=== PATIENT | female | born 2000 | race Caucasian/White ===

== ENCOUNTER 2021-03-28 16:34 | Observation (INO) | payer OTHER ==
[~2021-03-28] VITALS: Ht 172.7 cm; Wt 59.1 kg
[2021-03-28 17:41] LABS: BASO # 0.1 K/mm3 (0.0-0.2); BASO % 0.8 % (0.0-2.0); EOS # 0.1 K/mm3 (0.0-0.7); EOS % 0.8 % (0-4.0); GRAN % 55.7 % (42.2-75.2); HEMOGLOBIN 12.1 g/dl (12.5-16.0); LYMPH # 3.9 K/mm3 (1.2-3.4); MEAN CELL VOLUME 91 fl (80.0-100.0); MEAN CORPUSCULAR HEMOGLOBIN 31 pg (27.0-31.0); MEAN CORPUSCULAR HGB CONC 34 g/dl (33.0-37.0); MEAN PLATELET VOLUME 9.9 fl (7.4-10.4); MONO # 0.7 K/mm3 (0.1-0.6); MONO % 6.3 % (1.7-9.3); PLATELET COUNT 284 K/mm3 (130-400); RED BLOOD COUNT 3.89 M/mm3 (4.10-5.30); REDCELL DISTRIBUTION WIDTH-CV 12.8 % (11.5-14.5)
[2021-03-28 17:44] LABS: HEMATOCRIT 35.4 % (37.0-47.0)
[2021-03-28 18:12] LABS: ALBUMIN 4.2 gm/dL (3.5-5.0); BILIRUBIN,TOTAL 0.9 mg/dL (0.2-1.2); CREATININE, serum 0.81 mg/dL (0.57-1.11); TOTAL PROTEIN 7.1 gm/dL (6.2-8.1)
[2021-03-28 18:29] LABS: C-REACTIVE PROTEIN 0.31 mg/dL (0.00-0.50)
[2021-03-28 18:39] LABS: TROPONIN-I < 0.010 ng/mL (0.00-0.033)
[2021-03-28] MEDS ORDERED: EFFEXOR 75M75 MG/TAB PO (20:13)
--- NOTE | 2021-03-28 21:40 | NUR ---
2139- REPORT RECEIVED FROM DEO ROCHA IN ED. 2149- PT ARRIVES TO ROOM 222 PER CART, ABLE TO TRANSFER TO BED WITHOUT ASSISTANCE. IV TO RIGHT HAND INFUSING NS AT 125ML. TELEMETRY ALREADY ON PT. PT ORIENTED TO ROOM AND CALL LIGHTS, PLAN OF CARE DISCUSSED AND QUESTIONS ANSWERED. ASSESSMENT CHARTED.
[2021-03-28 22:00] VITALS: BP 118/69; PULSE 69; TEMP 98.9
[2021-03-29 02:40] VITALS: BP 98/47; PULSE 73; TEMP 98.2
[2021-03-29 07:05] VITALS: BP 111/55; PULSE 66; TEMP 98.1
[2021-03-29 08:42] LABS: BASO % 0.7 % (0.0-2.0); EOS # 0.1 K/mm3 (0.0-0.7); EOS % 1.2 % (0-4.0); GRAN # 3.3 K/mm3 (1.4-6.5); GRAN % 55.8 % (42.2-75.2); HEMATOCRIT 34.7 % (37.0-47.0); HEMOGLOBIN 11.6 g/dl (12.5-16.0); LYMPH % 33.4 % (20.0-51.0); MEAN CELL VOLUME 93 fl (80.0-100.0); MEAN CORPUSCULAR HEMOGLOBIN 31 pg (27.0-31.0); MEAN CORPUSCULAR HGB CONC 33 g/dl (33.0-37.0); MEAN PLATELET VOLUME 9.9 fl (7.4-10.4); MONO # 0.5 K/mm3 (0.1-0.6); MONO % 8.7 % (1.7-9.3); PLATELET COUNT 218 K/mm3 (130-400); RED BLOOD COUNT 3.74 M/mm3 (4.10-5.30); REDCELL DISTRIBUTION WIDTH-CV 12.9 % (11.5-14.5)
[2021-03-29 08:58] LABS: CALCIUM 9.2 mg/dL (8.4-10.2); CREATININE, serum 0.7 mg/dL (0.57-1.11)
--- NOTE | 2021-03-29 09:30 | NUR ---
Cardiology consult at bedside.
--- NOTE | 2021-03-29 10:15 | NUR ---
Hospitalist at bedside. Discharge orders recevied.
== END 2021-03-29 11:30 | disposition home or self-care (01) ==
LOC: COL.ER 16:34 → OB 21:47
PROVIDERS: Emergency Medicine; Nurse Practitioner; Student in an Organized Health Care Education/Training Program; ADMIT Student in an Organized Health Care Education/Training Program
DX: I77.811 Abdominal aortic ectasia (principal); R55 Syncope and collapse; E87.6 Hypokalemia; D64.9 Anemia, unspecified; F32.A Depression, unspecified; F41.9 Anxiety disorder, unspecified; Z20.822 Contact with and (suspected) exposure to COVID-19
CPT/HCPCS: G0378; J2550; J7030